=== PATIENT | male | born 1970 | race Two or more races ===

== ENCOUNTER 2018-07-08 14:51 | Emergency (ER) | payer OTHER ==
[2018-07-08] MEDS ORDERED: IBUPROFEN 600 MG TAB PO ONE (15:12)
[2018-07-08] MEDS ORDERED: CEPHALEXIN 500 MG CAP PO ONE (15:16)
--- NOTE | 2018-07-08 15:18 | EDPHY ---
H & P Time Seen by Provider: 07/08/18 15:11 HPI/ROS: CHIEF COMPLAINT: Partial finger amputation HISTORY OF PRESENT ILLNESS: 48-year-old [id number] male with out-of- date tetanus (has had tetanus immunization past) complaining of right 5th digit closed in a car door while at work today, partial amputation of the distal aspect of the distal phalanx. PHYSICAL EXAM (Prior to examination, patient consented to physical exam, hands were washed and my usual and customary physical exam procedures followed) 1) GENERAL: Well-developed, well-nourished, alert and oriented. Appears to be in no acute distress. 2) HEAD: Normocephalic 3) HEENT: sclera anicteric 4) LUNGS: Breathing comfortably. 5) SKIN: Patient's right 5th digit distal phalanx amputation of the distal portion of the distal phalanx with osseous fragments visualized. 6) MUSCULOSKELETAL: Unable or unwilling to assess FDP and FDS function secondary to pain 7) NEUROLOGIC: Full sensation distally Smoking Status: Never smoked Constitutional: Initial Vital Signs Temperature (C) 36.7 C 07/08/18 15:05 Heart Rate 68 07/08/18 15:05 Respiratory Rate 16 07/08/18 15:05 Blood Pressure 195/114 H 07/08/18 15:05 O2 Sat (%) 97 07/08/18 15:05 O2 Delivery Mode Room Air Allergies/Adverse Reactions: No Known Allergies Allergy (Unverified 07/08/18 15:04) Home Medications: Medication Instructions Recorded Cephalexin [Keflex] 500 mg PO TID 1 Days cap 07/08/18 Hydrocodone/APAP 5/325 [[place] 1 tab PO Q6 PRN #10 tab 07/08/18 5/325 (RX)] MDM/Departure - MDM Imaging Results: Imaging Impressions Finger X-Ray 07/08/18 15:11 Impression: Amputated bony tuft distal phalanx fifth finger. Images reviewed myself Medications Given: Discontinued Medications Diphtheria/Tetanus/Acell Pertussis (Boostrix) 0.5 ml IM .ONCE ONE Stop: 07/08/18 15:29 Last Admin: 07/08/18 15:33 Dose: 0.5 ml Ibuprofen (Motrin) 600 mg PO EDNOW ONE Stop: 07/08/18 15:13 Last Admin: 07/08/18 15:15 Dose: 600 mg ED Course/Re-evaluation: 3:30 p.m.: I have spoke with the patient, is noted to have shortening of the 5th digit. The patient provided verbal consent to share electronic, non identifying images, with the on-call hand surgeon Dr. Norman Pack 3:45 p.m.: Spoke with Dr. Norman Pack at this time who has reviewed the patient' s x-ray and images of the digit. He recommended no immediate rongeur or surgical intervention. He recommended immobilizing the area with sterile dressing, antibiotic ointment, oral antibiotics and he would like to see the patient in his office next Thursday or Thursday (today is ).. Discussed with patient and he is agreeable with this plan. Patient has been given my usual customary wound precautions instructions. He feels comfortable being discharged. software trainer assistance used. Care of patient under supervision of secondary supervising physician Dr Willem Villafuerte with whom I discussed case. - Depart Disposition: Home, Routine, Self-Care Clinical Impression: Closed fracture of tuft of distal phalanx of finger Condition: Good Instructions: Finger Fracture (ED) Additional Instructions: Return to the ER if you develop redness, swelling, discharge, warmth to the wound, red streaks going up your arm, or any other symptoms that concern you. Regresar a la fracisco de Emergencia si desarollas rojez, hinchazon, desecho, calor a la herida, estrias strong subiendo tu brazo, u cualquier otra sintoma que te preocupa. Sheila con Dr. Shoemaker el miercoles el 2 2018 a las 9:15am. Direccion: [address] [place] [address] Telefono: [phone] Martelle pérez informacion de [employer] a tu patron que te pida un Junior Electrical Engineer para la ccita el miercoles. Stand Alone Forms: Work Excuse, [facility] Instructions TRINIDADIAN Prescriptions: Cephalexin [Keflex] 500 mg PO TID 1 Days cap Hydrocodone/APAP 5/325 [[place] 5/325 (RX)] 1 tab PO Q6 PRN #10 tab PRN Reason: Pain, Severe Referrals: Norman Pack MD [Medical Doctor] - 07/14/18 Print Language: Congolese
[2018-07-08] MEDS ORDERED: TDAP ADULT 0.5 ML INJ (BOOSTRIX) IM ONE (15:28)
[2018-07-08 16:32] VITALS: BP 166/98
== END 2018-07-08 16:39 | disposition home or self-care (01) ==
DX: S62.636A Displaced fracture of distal phalanx of right little finger, initial encounter for closed fracture (principal); W23.1XXA Caught, crushed, jammed, or pinched between stationary objects, initial encounter; Y92.410 Unspecified street and highway as the place of occurrence of the external cause; Y93.9 Activity, unspecified; Y99.9 Unspecified external cause status; Z89.021 Acquired absence of right finger(s)